=== PATIENT | female | born 1955 | race Caucasian/White ===

== ENCOUNTER → 2018-12-27 | Outpatient (REF) ==
[~2018-12-27] MED LIST: ACETAZOLAMIDE PO; ALPHAGAN P0.15 % OD; AMLODIPINE10 MG PO; COMBIGAN0.2 MG/0.5 OP; COSOPT1 ML OD; LEXAPRO10 MG PO; LUMIGAN0.03 % OD; MEDDOSEPAK PO; NORVASC5 MG OR; ZITHROMAX250 MG PO
[2018-12-27 08:11] LABS: CHOLESTEROL HDL RATIO 4.2 (<4.4 (CALC))
== END | disposition home or self-care (01) | DRG 951 ==
LOC: LAB 06:33
PROVIDERS: ATTEND Family Medicine
DX: Z02.6 Encounter for examination for insurance purposes (principal)